=== PATIENT | male | born 1970 | race Hispanic/Latino ===

== ENCOUNTER 2017-09-25 14:42 | Emergency (ER) | payer SELFPAY, OTHER ==
[2017-09-25] MEDS ORDERED: Indomethacin 25 mg Capsule ONE (16:24)
[2017-09-25] MEDS ORDERED: Ibuprofen 800 MG TAB ONE (16:24)
== END 2017-09-25 16:52 | disposition home or self-care (01) ==
LOC: MADERS 14:42
DX: M10.9 Gout, unspecified (principal); F17.200 Nicotine dependence, unspecified, uncomplicated
CPT/HCPCS: 96372; J1040

== ENCOUNTER 2017-09-29 17:16 | Emergency (ER) | payer OTHER, SELFPAY ==
[~2017-09-29 17:16] MED LIST: Sodium Chloride 0.9% 1,000 ML BAG ONE; Sodium Chloride 0.9% 100 ML BAG ONE
--- NOTE | 2017-09-29 18:59 | RAD ---
PORTABLE CHEST: 09/29/17 HISTORY: Chest pain. Heart size appears enlarged. Pulmonary vessels are slightly prominent but no signs of overt edema or any focal infiltrative process. IMPRESSION: Mild cardiomegaly. POS: [facility]
[2017-09-29] MEDS ORDERED: Piperacillin/Tazobactam 4.5 GM VIAL ONE (19:11)
[2017-09-29] MEDS ORDERED: Ondansetron HCl/PF 4 MG/2 ML Vial ONE (19:12)
[2017-09-29] MEDS ORDERED: cefTRIAXone\\ROCEPHIN 2 GM VIAL ONE (19:12)
[2017-09-29 19:21] LABS: Band 12 % (5-11); Hemoglobin 12.4 g/dL (14.0-18.0); Hypochromia SLIGHT = 6-15 cells (100X) (0-5/hpf); Lymphocytes 3 % (21-51); MDiff Complete? YES; Mean Corpuscular HGB CONC 32.6 g/dL (32.0-36.0); Mean Corpuscular Hemoglobin 31.2 pg (27.0-31.0); Mean Corpuscular Volume 95.8 fl (80.0-94.0); Mean Platelet Volume 6.9 fL (7.4-10.4); Monocytes 2 % (0-10); Neutrophil 83 % (42-75); PLT Morphology Comment Appears Increased; Platelet Count 460 thou/uL (130-400); RBC Distribution Width 13.5 % (11.5-14.5); Red Blood Cell (RBC) Count 3.95 mill/uL (4.70-6.10); White Blood Cell (WBC) Count 41.6 thou/uL (4.8-10.8)
[2017-09-29 19:22] LABS: ALT (SGPT) 29 U/L (8-55); AST (SGOT) 35 U/L (5-34); Albumin 2.4 g/dL (3.5-5.0); Alkaline Phosphatase 123 U/L (40-150); Anion Gap 15 mmol/L (10-20); BUN (Urea Nitrogen) 33 mg/dL (8.9-20.6); Bilirubin, Total 1.4 mg/dL (0.2-1.2); Calc. Creatinine Clearance 0 mL/min (70-130); Calcium 8.1 mg/dL (7.8-10.44); Carbon Dioxide 24 mmol/L (22-29); Chloride 99 mmol/L (98-107); Estimated GFR-MDRD 90; Globulin 4.6 g/dL (2.4-3.5); Glucose 157 mg/dL (70-105); Potassium 4.5 mmol/L (3.5-5.1); Sodium 133 mmol/L (136-145)
[2017-09-29] MEDS ORDERED: Adacel (T-DAP) 0.5 ML VIAL ONE (19:52)
== END 2017-09-29 20:05 | disposition short-term general hospital (02) ==
LOC: EDBD 17:16 → MADERS 17:16
DX: L08.9 Local infection of the skin and subcutaneous tissue, unspecified (principal); F17.200 Nicotine dependence, unspecified, uncomplicated; Z79.899 Other long term (current) drug therapy; Z23 Encounter for immunization
CPT/HCPCS: 36415; 71045; 80053; 83880; 85025; 85060; 87040; 87070; 87077; 87149; 87186; 87205; 90471; 90715; 93005; 94760; 96374; 96375; J0696; J2405; J2543; J7050